=== PATIENT | female | born 1995 | race Two or more races ===

== ENCOUNTER 2022-12-16 17:08 | Emergency (ER) | payer OTHER ==
[~2022-12-16] VITALS: Ht 157.5 cm; Wt 84.0 kg
[2022-12-16] MEDS ORDERED: ONDANSETRON HCL 4 MG/2 ML VIAL IM ONE (18:15)
[2022-12-16 18:27] LABS: Basophils # (auto) 0.1 10 ^3/uL (0-0.2); Basophils % (auto) 1.2 % (0.0-2.0); Eosinophils # (auto) 0 10 ^3/uL (0-0.8); Eosinophils % (auto) 0.1 % (0.0-7.0); Hematocrit 40.8 % (36.0-46.0); Hemoglobin 13.7 g/dL (12.2-16.2); Lymphocytes # (auto) 1.7 10 ^3/uL (0.4-5.4); Lymphocytes % (auto) 22.4 % (10.0-50.0); Mean Corpuscular Hemoglobin 29.4 pg (28.0-32.0); Mean Corpuscular Hgb Conc. 33.4 g/dL (32.0-36.0); Mean Corpuscular Volume 87.9 fL (80.0-100.0); Monocytes # (auto) 0.7 10 ^3/uL (0-1.3); Monocytes % (auto) 8.5 % (0.0-12.0); Neutrophils # (auto) 5.3 10 ^3/uL (1.6-8.6); Neutrophils % (auto) 67.8 % (37.0-80.0); Nucleated Red Blood Cells % 0.1 %; Red Blood Cells 4.65 10^6/uL (4.0-5.20); Red Cell Distribution Width 14.1 % (11.8-14.3); White Blood Cell 7.7 10^3/uL (4.4-10.8)
[2022-12-16] MEDS ORDERED: MAALOX PLUS or MAALOX 30 ML PO ONE (18:30)
[2022-12-16 18:50] LABS: Albumin 4.4 g/dL (3.4-5.0); Calcium 9.3 mg/dL (8.5-10.1); Potassium 3.6 mmol/L (3.5-5.1)
[2022-12-16 18:53] LABS: BUN/Creatinine Ratio 17.3 (10.0-20.0); Bilirubin, Total 1.2 mg/dL (0.2-1.0); Total Protein 8.5 g/dL (6.4-8.2)
[2022-12-16 19:00] LABS: Urine Bacteria FEW /hpf (None Seen); Urine Blood 3+ /uL (Negative); Urine Mucus MODERATE (None Seen); Urine Specific Gravity 1.028 (1.001-1.035); Urine WBC 62 /hpf (0 - 5)
[2022-12-16] MEDS ORDERED: ACET500T58 PO (19:27)
[2022-12-16] MEDS ORDERED: ZOFR4T PO (19:27)
[2022-12-16] MEDS ORDERED: NITR-87 PO (19:27)
[2022-12-16] MEDS ORDERED: NITROFURANTOIN 100 mg CAP PO ONE (19:30)
[2022-12-16] MEDS ORDERED: cefTRIAXone SOD 1,000 MG VL IM ONE (19:30)
[2022-12-16 20:15] VITALS: BP 106/74
== END 2022-12-16 20:44 | disposition home or self-care (01) ==
LOC: ER 17:08
DX: N39.0 Urinary tract infection, site not specified (principal); E66.9 Obesity, unspecified; Z68.33 Body mass index [BMI] 33.0-33.9, adult; Z32.02 Encounter for pregnancy test, result negative
CPT/HCPCS: 36415; 80053; 81001; 81025; 85025; 96372; 99284; J0696; J2405